=== PATIENT | male | born 1945 | race Caucasian/White ===

== ENCOUNTER 2018-06-02 09:33 | Emergency (ER) | payer MEDICARE ==
[2018-06-02] MEDS ORDERED: Acetaminophen 500 MG TAB ONE (10:47)
--- NOTE | 2018-06-02 11:12 | CT ---
CT Brain WO Con: 06/02/2018 10:54 AM CLINICAL HISTORY: Unsteady gait, fall. COMPARISON: None. FINDINGS: Hemorrhage: None. Ventricular system: Mild compensatory dilatation related to parenchymal volume loss. Cerebral parenchyma: Microvascular ischemic disease Midline shift: None. Mass: No mass effect. Calvarium: Normal. Visualized Paranasal sinuses: Clear. Decreased pneumatization of right mastoid air cells. IMPRESSION: No acute intracranial abnormalities.
[2018-06-02] MEDS ORDERED: Lidocaine 5% Patch TD SCH (11:15)
[2018-06-02 11:32] LABS: #Basophils 0.1 thou/uL (0.0-0.2); #Eosinphils 0.1 thou/uL (0.0-0.7); #Lymphocytes 2.5 thou/uL (1.20-3.40); #Monocytes 1.1 thou/uL (0.11-0.59); #Neutrophils 11.2 thou/uL (1.40-6.50); %Basophils 0.5 % (0.0-1.0); %Eosinophils 0.6 % (0.0-10.0); %Lymphocytes 16.5 % (21.0-51.0); %Monocytes 7.4 % (0.0-10.0); Hemoglobin 16.7 g/dL (14.0-18.0); Mean Corpuscular HGB CONC 34.3 g/dL (32.0-36.0); Mean Corpuscular Hemoglobin 33.7 pg (27.0-31.0); Mean Corpuscular Volume 98.3 fL (78.0-98.0); Mean Platelet Volume 6.8 fL (7.4-10.4); Platelet Count 293 thou/uL (130-400); RBC Distribution Width 11.9 % (11.5-14.5); Red Blood Cell (RBC) Count 4.94 mill/uL (4.70-6.10); White Blood Cell (WBC) Count 14.9 thou/uL (4.8-10.8)
--- NOTE | 2018-06-02 11:35 | RAD ---
PA CHEST RADIOGRAPH TWO VIEWS RIGHT RIBS: Date: 06-02-18 Provided Clinical History: Right sided chest pain status post injury. FINDINGS: No comparisons. Cardiac silhouette is within normal limits. Median sternotomy changes are seen. Left subclavian implanted port is noted. No focal consolidation, pleural fluid, or pneumothorax apparent. No evidence for a displaced right sided rib fracture. IMPRESSION: No evidence for an acute process. POS: [facility]
[2018-06-02 11:56] LABS: ALT (SGPT) 18 U/L (8-55); AST (SGOT) 17 U/L (5-34); Albumin 4.1 g/dL (3.4-4.8); Alkaline Phosphatase 94 U/L (40-150); Anion Gap 16 mmol/L (10-20); BUN (Urea Nitrogen) 14 mg/dL (8.4-25.7); Bilirubin, Total 0.6 mg/dL (0.2-1.2); CK (CPK) 33 U/L (30-200); Calc. Creatinine Clearance 0 mL/min (70-130); Calcium 10.1 mg/dL (7.8-10.44); Carbon Dioxide 22 mmol/L (23-31); Chloride 103 mmol/L (98-107); Estimated GFR-MDRD 89; Globulin 3.6 g/dL (2.4-3.5); Glucose 109 mg/dL (83-110); Potassium 4.1 mmol/L (3.5-5.1); Protein, Total 7.7 g/dL (5.8-8.1); Sodium 137 mmol/L (136-145)
[2018-06-02 13:01] LABS: Bilirubin Negative (Negative); Blood, Urine Small (Negative); Clarity CLOUDY (Clear); Glucose, Urine (Dipstick) Negative (Negative); Leukocyte Negative (Negative); Nitrite Negative (Negative); Protein, Urine (Dipstick) Negative (Neg-Trace); Specific Gravity, Urine 1.018 (1.002-1.036)
[2018-06-02 13:06] LABS: Bacteria/HPF None Seen HPF (None Seen); Hyaline Casts/LPF 0-3 HYALINE CAST LPF (0-3 Hyaline); Squamous Epithelial 0-3 HPF (0-3); WBC/HPF 0-3 HPF (0-3)
== END 2018-06-02 13:10 | disposition home or self-care (01) ==
LOC: ERS 09:33
DX: S20.211A Contusion of right front wall of thorax, initial encounter (principal); S30.811A Abrasion of abdominal wall, initial encounter; I10 Essential (primary) hypertension; B20 Human immunodeficiency virus [HIV] disease; I25.10 Atherosclerotic heart disease of native coronary artery without angina pectoris; W01.198A Fall on same level from slipping, tripping and stumbling with subsequent striking against other object, initial encounter
CPT/HCPCS: 36415; 70450; 80053; 81003; 81015; 82550; 84484; 85025; 93005

== ENCOUNTER 2018-06-17 08:55 | Outpatient (CLI) | payer MEDICARE ==
--- NOTE | 2018-06-17 09:51 | ULT ---
EXAM: Abdominal ultrasound complete: HISTORY: Abdominal pain COMPARISON: None FINDINGS: The liver appears unremarkable. There is some fairly dense shadowing from the region of the gallbladder fossa evidence for either a g allbladder which is packed with stones. Another consideration would be shallowing in a patient has had prior cholecystectomy. I favor this being stones. Additional imaging with CT would certainly be o f help in differentiating these possibilities. The common bile duct is Within normal limits. Visualized pancreas: Unremarkable. Visualized abdominal aorta: Unremarkable. Visualized IVC: Unremarkable. Visualized spleen: Unremarkable. Visualized kidneys: No evidence for hydronephrosis or solid or cystic mass. No mass, abscess, adenopathy, or abnormal fluid collection or other acute process. IMPRESSION: Dense shadowing from the gallbladder fossa which has more the appearance of a gallbladder which is pa cked with gallstones. If there is concern for prior cholecystectomy, follow-up CT scan is suggested.
== END 2018-06-17 08:56 | disposition home or self-care (01) ==
LOC: BICULT 08:55
PROVIDERS: ATTEND Internal Medicine Geriatric Medicine
DX: R10.84 Generalized abdominal pain (principal); K80.20 Calculus of gallbladder without cholecystitis without obstruction
CPT/HCPCS: 76700

== ENCOUNTER 2018-09-24 05:42 | Day surgery (SDC) | payer MEDICARE ==
[2018-09-18 16:01] VITALS: BMI 34.0
[2018-09-24] MEDS ORDERED: Ketorolac Tromethamine 30 MG/ML VIAL ONE (06:29)
[2018-09-24] MEDS ORDERED: ceFAZolin Sodium (SDC) 2 GM/100 ML BAG ONE (06:29)
[2018-09-24] MEDS ORDERED: Fentanyl 100 MCG/2 ML VIAL ONE ×2 (06:41→09:19)
[2018-09-24] MEDS ORDERED: Midazolam HCl 2 mg/2 ml Vial ONE (06:41)
[2018-09-24 06:47] LABS: #Basophils 0.1 thou/uL (0.0-0.2); #Eosinphils 0.2 thou/uL (0.0-0.7); #Lymphocytes 2.1 thou/uL (1.20-3.40); #Monocytes 0.7 thou/uL (0.11-0.59); #Neutrophils 4.2 thou/uL (1.40-6.50); %Basophils 0.9 % (0.0-1.0); %Eosinophils 3.1 % (0.0-10.0); %Lymphocytes 28.9 % (21.0-51.0); %Monocytes 9.6 % (0.0-10.0); %Neutrophils 57.5 % (42.0-75.0); Hemoglobin 14.6 g/dL (14.0-18.0); Mean Corpuscular HGB CONC 35.5 g/dL (32.0-36.0); Mean Corpuscular Hemoglobin 34.1 pg (27.0-31.0); Mean Corpuscular Volume 95.9 fL (78.0-98.0); Mean Platelet Volume 7.2 fL (7.4-10.4); Platelet Count 238 thou/uL (130-400); RBC Distribution Width 11.4 % (11.5-14.5); Red Blood Cell (RBC) Count 4.28 mill/uL (4.70-6.10); White Blood Cell (WBC) Count 7.3 thou/uL (4.8-10.8)
[2018-09-24] MEDS ORDERED: Bupivacaine/Epinephrine 0.25% 30 ML VIAL ONE (07:04)
[2018-09-24 07:05] LABS: Anion Gap 11 mmol/L (10-20); BUN (Urea Nitrogen) 20 mg/dL (8.4-25.7); Calc. Creatinine Clearance 91 mL/min (70-130); Calcium 9.7 mg/dL (7.8-10.44); Carbon Dioxide 26 mmol/L (23-31); Chloride 105 mmol/L (98-107); Estimated GFR-MDRD 71; Glucose 99 mg/dL (83-110); Potassium 4.4 mmol/L (3.5-5.1); Sodium 138 mmol/L (136-145)
--- NOTE | 2018-09-24 10:31 | RAD ---
XR Chest 1 View Portable History: MediPort removal Comparison: None. Findings: Heart size is enlarged. Small effusions. Mild pulmonary venous congestion and early edema. No pneumothorax. Appears to be a catheter projecting over the expected location left subclavian vein with tip extendin g over the mid SVC. The port component has been removed. Impression: Incomplete removal of catheter which projects over the subclavian vein with tip over the SVC with the port itself absent.
--- NOTE | 2018-09-25 10:08 | OP ---
DATE OF PROCEDURE: 09/24/2018 PREOPERATIVE DIAGNOSIS: Symptomatic cholelithiasis, unnecessary MediPort. POSTOPERATIVE DIAGNOSIS: Symptomatic cholelithiasis, unnecessary MediPort. OPERATION PERFORMED: Laparoscopic cholecystectomy (extremely difficult workup requiring about an hour and a half to complete) and MediPort removal (also difficult as the catheter was apparently imbedded in the central venous system and fragile). ANESTHESIA: General endotracheal. INDICATIONS: The patient is a 73-year-old white male. 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 This is located in the left upper chest. I recommended port removal while he was under anesthesia. He also has ultrasound proven cholelithiasis and laparoscopic cholecystectomy was recommended. DESCRIPTION OF OPERATION: Informed consent was obtained. Patient was taken to the operating room, where general endotracheal anesthesia obtained. Patient was placed in supine position. Abdomen was prepped with ChloraPrep and draped in sterile fashion. Local anesthetic was infiltrated using 0.25% Marcaine with epinephrine. A 5-mm infraumbilical incision was created through which a Veress needle was passed the peritoneal cavity, pneumoperitoneum was established, carbon dioxide up to pressure of 15 mmHg. A 5 mm trocar port was passed through the same incision. Laparoscopic camera was passed through this port. Under direct vision, three additional 5 mm right upper quadrant ports were placed. The patient had more mesenteric and omental fat than as typical and this made visualization of the gallbladder and the liver challenging. It was only with effort that I was able to move enough fatty tissue out of the way to be able to visualize the gallbladder. The visualized in the apex of the gallbladder was even more challenging. I was eventually able to see the gallbladder and when I attempted to grasp this, but it was impossible to do so as the gallbladder was completely full of stones. It was hard and there was no gallbladder wall laxity. There were some adhesions to the gallbladder that were taken down using careful electrocautery. I was able to grasp the gallbladder only with difficulty, and in doing so, the gallbladder wall tore almost immediately. From this opening, the stones began to drop into the abdominal cavity. Intermittently during the rest of the operation, I would stop and scoop up as many stones as I could before continuing. With difficulty, I was able to dissect at the apex of the gallbladder. The cystic artery was identified, dissected, divided between clips. The duct was identified and felt to be mildly dilated. I incised the duct proximally and there was no immediate reflux of bile. It appeared that there were stones within the cystic duct. With some degree of effort, I was able to milk two stones retrograde out of the distal cystic duct. Immediately after these were expressed, there was free flow of bile from the cystic duct. It was noted that the patient's liver function tests preoperatively were entirely normal. I divided the duct at the site of the ductotomy and closed the distal duct stump both with a clip and a PDS Endoloop. The gallbladder was then dissected out of the gallbladder fossa with some degree of difficulty using electrocautery. The specimen was placed in a specimen retrieval sac which was removed through the umbilical port site. I had to enlarge the skin incision and the fascial incision to get this out. The fascial defect was then closed with 0 Vicryl suture using a GraNee needle. Attention was then returned to the right upper quadrant. Unfortunately, there were a number of stones that had come out during the course of dissecting the gallbladder. I spent the next 0.5 hour chasing down all the stones that I could find. I continued to irrigate the subhepatic and parahepatic space and all stones that were encountered were removed. When all stones were removed and hemostasis was intact, all ports were removed under direct vision. Pneumoperitoneum was carefully evacuated. 0.25% Marcaine with epinephrine infiltrated at each port site. Skin edges were approximated with 4-0 Monocryl subcuticular suture. Dermabond was placed externally. Attention was then turned to his MediPort. This was prepped separately with ChloraPrep and draped in sterile fashion. Gloves were changed before proceeding. Additional local anesthetic was infiltrated into the port site using 0.25% Marcaine with epinephrine. The prior incision was reopened. Dissection was carried through skin and subcutaneous tissue down to the port. This was dissected circumferentially. Investing sutures were removed. I placed a [id number] suture of 3-0 Vicryl around the catheter entrance site and soft tissue and then attempted to remove the port and the catheter. As I gently pulled on the catheter, it appeared there might be some degree of resistance. Firm pressure was never placed on the catheter. With just minimal traction, it seemed to give way and pull out. When I examined, however, it appeared that the catheter had divided and that only a few inches of the catheter attached to the port were removed, which would leave a significantly longer segment still within his central venous system. The tract was ligated with the Vicryl suture. The wound was closed in layers with 3-0 and 4-0 Monocryl. Dermabond was placed externally. Patient tolerated the procedure well and had remained in stable condition throughout. He was taken to recovery room in stable condition. Chest x-ray was obtained in the recovery room showing the residual catheter in a typical location of the superior vena cava and the innominate vein. I suspect that the catheter was imbedded in the venous system at this location and had fractured with almost no effort with attempted removal of the catheter and the port. At this point, there did not seem to be anything else needed to be done. I suspect that will be stable and remain in location. Job ID: [id number]
== END 2018-09-24 12:45 | disposition home or self-care (01) ==
LOC: SDC 05:42
PROVIDERS: ATTEND Specialist
PROC: 0FT44ZZ Resection of Gallbladder, Percutaneous Endoscopic Approach (ICD-10-PCS; principal; 2018-09-24)
PROC: 0JPT3WZ Removal of Totally Implantable Vascular Access Device from Trunk Subcutaneous Tissue and Fascia, Percutaneous Approach (ICD-10-PCS; 2018-09-24)
DX: K80.12 Calculus of gallbladder with acute and chronic cholecystitis without obstruction (principal); K82.8 Other specified diseases of gallbladder; I25.10 Atherosclerotic heart disease of native coronary artery without angina pectoris; I11.9 Hypertensive heart disease without heart failure; Z85.72 Personal history of non-Hodgkin lymphomas; Z21 Asymptomatic human immunodeficiency virus [HIV] infection status; Z79.82 Long term (current) use of aspirin; Z79.899 Other long term (current) drug therapy; Z88.0 Allergy status to penicillin; Z88.5 Allergy status to narcotic agent; Z91.013 Allergy to seafood
CPT/HCPCS: 71045; 80048; 85025; 88304; J0131; J0690; J1885; J2250; J3010

== ENCOUNTER 2018-10-08 13:46 | Outpatient (CLI) | payer MEDICARE ==
--- NOTE | 2018-10-08 18:52 | RAD ---
TWO VIEW CHEST: 10/08/18 INDICATION: Complication from femoral arterial graft. Reference made to 09/24/18. FINDINGS: There is evidence of prior sternotomy. Cardiac silhouette is stable in size. Interval improvement of prior vascular congestion with slight prominence of central pulmonary vasculature remaining. Mild pat peyton left basilar density is present. No pneumothorax. Prior remnant catheter overlying the mediastinum is grossly stable. IMPRESSION: Mild patchy left basilar density which may be on the basis of pneumonitis or atelectasis. This is imp roved from prior exam, however. Interval improved vascular congestion. Previously noted catheter remnant of the left subclavian vein/SVC region is similar appearing. POS: [facility]
== END 2018-10-08 13:47 | disposition home or self-care (01) ==
LOC: RAD 13:46
PROVIDERS: ATTEND Specialist
DX: T82.392A Other mechanical complication of femoral arterial graft (bypass), initial encounter (principal); J98.4 Other disorders of lung; R09.89 Other specified symptoms and signs involving the circulatory and respiratory systems; Z95.828 Presence of other vascular implants and grafts
CPT/HCPCS: 71046

== ENCOUNTER 2020-11-01 10:25 | Outpatient (CLI) | payer MEDICARE ==
[2020-11-01 13:22] LABS: ALT (SGPT) 17 U/L (8-55); AST (SGOT) 17 U/L (5-34); Albumin 3.7 g/dL (3.4-4.8); Alkaline Phosphatase 114 U/L (40-110); Anion Gap 14 mmol/L (10-20); BUN (Urea Nitrogen) 16 mg/dL (8.4-25.7); Bilirubin, Total 0.7 mg/dL (0.2-1.2); Calc. Creatinine Clearance 0 mL/min (70-130); Calcium 9.5 mg/dL (7.8-10.44); Carbon Dioxide 23 mmol/L (23-31); Chloride 106 mmol/L (98-107); Globulin 2.8 g/dL (2.4-3.5); Glucose 151 mg/dL (83-110); Potassium 4.1 mmol/L (3.5-5.1); Protein, Total 6.5 g/dL (5.8-8.1); Sodium 139 mmol/L (136-145)
[2020-11-01 13:28] LABS: #Eosinphils 0.1 10x3/uL (0.0-0.5); #Monocytes 0.6 10x3/uL (0.0-1.1); %Basophils 0.5 % (0.0-2.0); %Lymphocytes 26.9 % (18.0-47.0); %Monocytes 7.7 % (0.0-10.0); %Neutrophils 63.4 % (40.0-75.0); Mean Corpuscular Hemoglobin 32.9 pg (27.0-33.0); Mean Corpuscular Volume 93.9 fl (81.2-95.1); Mean Platelet Volume 10.1 fl (7.4-10.4); Platelet Count 226 10x3/uL (150-450); Red Blood Cell (RBC) Count 4.26 10x6/uL (4.32-5.72); White Blood Cell (WBC) Count 7.8 10x3/uL (3.5-10.5)
[2020-11-02 11:54] LABS: SARS-CoV-2 PCR by NAA Not Detected (NotDetected)
== END 2020-11-01 10:26 | disposition home or self-care (01) ==
LOC: LABBT 10:25
PROVIDERS: ATTEND Internal Medicine Cardiovascular Disease
DX: Z01.818 Encounter for other preprocedural examination (principal); R94.39 Abnormal result of other cardiovascular function study; Z20.822 Contact with and (suspected) exposure to COVID-19; Z95.1 Presence of aortocoronary bypass graft
CPT/HCPCS: 80053; 85025; 93005; U0003; U0005; 93010

== ENCOUNTER 2020-11-06 06:12 | Inpatient (IN) | payer MEDICARE ==
[2020-11-06] MEDS ORDERED: Midazolam HCl 2 mg/2 ml Vial ONE (06:34)
[2020-11-06] MEDS ORDERED: Heparin 10,000 UNITS/ 10 ML VIAL ONE (06:35)
[2020-11-06] MEDS ORDERED: Lidocaine 1% (PF) 30 ML VIAL ONE (06:35)
[2020-11-06] MEDS ORDERED: Fentanyl 100 MCG/2 ML VIAL ONE (06:35)
[2020-11-06] MEDS ORDERED: Protamine Sulfate 50 MG/5 ML VIAL ONE (06:35)
[2020-11-06 07:56] LABS: Cardiac Risk 3.8 (Less than 4.5)
[2020-11-06] MEDS ORDERED: Nitroglycerin 100MG/250ML BOT 250 ML ONE (08:07)
[2020-11-06] MEDS ORDERED: Bivalirudin 250 MG VIAL ONE (08:10)
[2020-11-06] MEDS ORDERED: Clopidogrel Bisulfate 300 MG TAB ONE (08:21)
[2020-11-06] MEDS ORDERED: Amiodarone 150 MG/3 ML VIAL ONE (08:53)
[2020-11-06] MEDS ORDERED: Sodium Chloride 0.9% 1,000 ML IV SCH (09:15)
[2020-11-06] MEDS ORDERED: Nitroglycerin 0.4 MG TAB (25 Tab Bottle) SL PRN (09:15)
[2020-11-06] MEDS ORDERED: Morphine 4 MG/ML VIAL SLOW IVP PRN (09:15)
[2020-11-06] MEDS ORDERED: Morphine 2 MG/ML VIAL SLOW IVP PRN (09:15)
[2020-11-06] MEDS ORDERED: Morphine 2 MG/ML VIAL ONE (12:44)
[2020-11-06] MEDS ORDERED: Iopamidol 370 76% 100 ML VIAL ONE (15:17)
[2020-11-06] MEDS ORDERED: Iopamidol 370 76% 50 ML VIAL FS ONE (15:17)
[2020-11-06 20:07] VITALS: BMI 29.5
[2020-11-06] MEDS ORDERED: Acetaminophen 325 MG TAB PO PRN (20:52)
[2020-11-06] MEDS ORDERED: Mag-Al 1200 mg/1200 mg/30 ML UDCUP PO SCH (21:00)
[2020-11-07 05:35] LABS: #Eosinphils 0.1 thou/uL (0.0-0.7); #Monocytes 1.1 thou/uL (0.11-0.59); #Neutrophils 7.9 thou/uL (1.40-6.50); %Basophils 0.2 % (0.0-1.0); %Eosinophils 0.6 % (0.0-10.0); %Lymphocytes 18.2 % (21.0-51.0); %Monocytes 9.8 % (0.0-10.0); %Neutrophils 71.2 % (42.0-75.0); Hemoglobin 14.3 g/dL (14.0-18.0); Mean Corpuscular HGB CONC 34.4 g/dL (32.0-36.0); Mean Corpuscular Volume 95.9 fL (78.0-98.0); Platelet Count 224 thou/uL (130-400); RBC Distribution Width 12.2 % (11.5-14.5); Red Blood Cell (RBC) Count 4.35 mill/uL (4.70-6.10); White Blood Cell (WBC) Count 11.1 thou/uL (4.8-10.8)
[2020-11-07 06:04] LABS: ALT (SGPT) 21 U/L (8-55); AST (SGOT) 22 U/L (5-34); Albumin 3.3 g/dL (3.4-4.8); Alkaline Phosphatase 131 U/L (40-110); Anion Gap 14 mmol/L (10-20); BUN (Urea Nitrogen) 12 mg/dL (8.4-25.7); Bilirubin, Total 1.4 mg/dL (0.2-1.2); Calc. Creatinine Clearance 116 mL/min (70-130); Calcium 8.8 mg/dL (7.8-10.44); Carbon Dioxide 20 mmol/L (23-31); Chloride 105 mmol/L (98-107); Globulin 2.9 g/dL (2.4-3.5); Glucose 109 mg/dL (83-110); Potassium 3.6 mmol/L (3.5-5.1); Protein, Total 6.2 g/dL (5.8-8.1); Sodium 135 mmol/L (136-145)
[2020-11-07] MEDS ORDERED: Aspirin 81 mg Enteric Coated Tablet PO SCH (09:15)
[2020-11-07] MEDS: Furosemide 20 MG TAB PO SCH (09:41)
[2020-11-07] MEDS: CeleCOXIB 100 MG CAP PO SCH (09:42)
[2020-11-07] MEDS: Clopidogrel Bisulfate 75 MG TAB PO SCH (09:42)
[2020-11-07] MEDS: Amiodarone 200 MG TAB PO SCH ×2 (15:00→20:50)
[2020-11-07] MEDS: Atorvastatin Calcium 40 MG TAB PO SCH (20:50)
[2020-11-08] MEDS ORDERED: PROPOFOL 20 ML ONE (08:34)
[2020-11-08] MEDS ORDERED: PROPOFOL 200 MG/20 ML VIAL ONE (08:56)
[2020-11-08] MEDS ORDERED: GENVOYA FS SCH (09:00)
[2020-11-08] MEDS ORDERED: Apixaban 5 MG TAB PO SCH (09:45)
[2020-11-08] MEDS: Clopidogrel Bisulfate 75 MG TAB PO SCH ×2 (10:20→11:00)
[2020-11-08] MEDS: Amiodarone 200 MG TAB PO SCH ×3 (10:20→21:55)
[2020-11-08] MEDS: CeleCOXIB 100 MG CAP PO SCH (10:59)
[2020-11-08] MEDS: Aspirin 81 mg Enteric Coated Tablet PO SCH (11:00)
[2020-11-08] MEDS: Furosemide 20 MG TAB PO SCH (11:01)
[2020-11-08] MEDS: Apixaban 5 MG TAB PO SCH (21:55)
[2020-11-08] MEDS: Atorvastatin Calcium 40 MG TAB PO SCH (21:55)
[2020-11-09 08:45] VITALS: TEMP 97.9
[2020-11-09] MEDS: Clopidogrel Bisulfate 75 MG TAB PO SCH (08:50)
[2020-11-09] MEDS: Amiodarone 200 MG TAB PO SCH (08:50)
[2020-11-09] MEDS: CeleCOXIB 100 MG CAP PO SCH (08:51)
[2020-11-09] MEDS: Apixaban 5 MG TAB PO SCH (08:51)
[2020-11-09] MEDS: Furosemide 20 MG TAB PO SCH (08:51)
[2020-11-09] MEDS: Aspirin 81 mg Enteric Coated Tablet PO SCH (08:52)
[2020-11-09 14:10] VITALS: BP 128/64
[2020-11-09] MEDS ORDERED: Amiodarone 200 MG TAB PO SCH (21:00)
[2020-11-10] MEDS ORDERED: Ezetimibe 10 MG TAB PO SCH (09:00)
== END 2020-11-09 15:44 | disposition home or self-care (01) | DRG 249 ==
LOC: CCL 06:12 → 2NO 15:05 → OBSVTOIN 11-09 10:22
PROVIDERS: ADMIT Internal Medicine Cardiovascular Disease; ATTEND Internal Medicine Cardiovascular Disease
PROC: B24BZZ4 Ultrasonography of Heart with Aorta, Transesophageal (ICD-10-PCS; principal; 2020-11-09)
PROC: 02703EZ Dilation of Coronary Artery, One Artery with Two Intraluminal Devices, Percutaneous Approach (ICD-10-PCS; 2020-11-09)
PROC: 4A023N7 Measurement of Cardiac Sampling and Pressure, Left Heart, Percutaneous Approach (ICD-10-PCS; 2020-11-09)
PROC: B2111ZZ Fluoroscopy of Multiple Coronary Arteries using Low Osmolar Contrast (ICD-10-PCS; 2020-11-09)
PROC: B2181ZZ Fluoroscopy of Left Internal Mammary Bypass Graft using Low Osmolar Contrast (ICD-10-PCS; 2020-11-09)
PROC: B2121ZZ Fluoroscopy of Single Coronary Artery Bypass Graft using Low Osmolar Contrast (ICD-10-PCS; 2020-11-09)
PROC: B2151ZZ Fluoroscopy of Left Heart using Low Osmolar Contrast (ICD-10-PCS; 2020-11-09)
PROC: 4A033BC Measurement of Arterial Pressure, Coronary, Percutaneous Approach (ICD-10-PCS; 2020-11-09)
DX: I25.10 Atherosclerotic heart disease of native coronary artery without angina pectoris (principal); C85.90 Non-Hodgkin lymphoma, unspecified, unspecified site; I25.82 Chronic total occlusion of coronary artery; R29.6 Repeated falls; I48.0 Paroxysmal atrial fibrillation; I25.5 Ischemic cardiomyopathy; Z96.659 Presence of unspecified artificial knee joint; I34.0 Nonrheumatic mitral (valve) insufficiency; Z21 Asymptomatic human immunodeficiency virus [HIV] infection status; E78.00 Pure hypercholesterolemia, unspecified; I10 Essential (primary) hypertension; Z80.9 Family history of malignant neoplasm, unspecified; Z88.5 Allergy status to narcotic agent; Z88.0 Allergy status to penicillin; Z79.82 Long term (current) use of aspirin; Z79.899 Other long term (current) drug therapy; Z95.1 Presence of aortocoronary bypass graft; Z90.49 Acquired absence of other specified parts of digestive tract; Z82.49 Family history of ischemic heart disease and other diseases of the circulatory system; Z83.3 Family history of diabetes mellitus
CPT/HCPCS: 36415; 76942; 80053; 80061; 85025; 85347; 92928; 93005; 93010; 93312; 93459; 93798; 99152; 99153; C1876; G0378; J0282; J0583; J1644; J2001; J2250; J2270; J2704; J2720; J3010; Q9967

== ENCOUNTER 2021-06-25 13:42 | Outpatient (CLI) | payer MEDICARE | END 2021-06-25 13:43 | disposition home or self-care (01) | LOC: BICRAD 13:42 | PROVIDERS: ATTEND Internal Medicine Cardiovascular Disease | DX: I48.0 Paroxysmal atrial fibrillation (principal) | CPT/HCPCS: 36415; 71046; 80053; 80061; 84443 ==

== ENCOUNTER 2024-11-18 10:54 | Inpatient (IN) | payer MEDICARE ==
[2024-11-18] MEDS ORDERED: Nitroglycerin 2% Ointment 1 INCH/1 GM Packet ONE (11:21)
[2024-11-18] MEDS ORDERED: Furosemide 40 MG (4 mL) VIAL ONE (11:21)
[2024-11-18] MEDS ORDERED: Ondansetron PF 4 MG/2 ML Vial ONE (11:22)
[2024-11-18 11:44] LABS: #Basophils 0.03 10x3/uL (0.0-0.2); #Eosinophils Less than 0.03 10x3/uL (0.0-0.7); #Monocytes 0.93 10x3/uL (0.11-0.59); #Neutrophils 12.18 10x3/uL (1.40-6.50); %Basophils 0.2 % (0.0-1.0); %Eosinophils 0.1 % (0.0-10.0); %Lymphocytes 12.2 % (21.0-51.0); %Monocytes 6.2 % (0.0-10.0); %Neutrophils 80.6 % (42.0-75.0); Hematocrit 43.4 % (42.0-52.0); Hemoglobin 13.8 g/dL (14.0-18.0); Mean Corpuscular Hemoglobin 29.4 pg (27.0-31.0); Mean Corpuscular Volume 92.5 fL (78.0-98.0); Platelet Count 125 10x3/uL (130-400); Red Blood Cell (RBC) Count 4.69 mill/uL (4.70-6.10); White Blood Cell (WBC) Count 15.10 10x3/uL (4.8-10.8)
[2024-11-18 12:00] LABS: ALT (SGPT) 20 U/L (Less than 45); AST (SGOT) 55 U/L (11-34); Albumin 3.1 g/dL (3.1-4.5); Alkaline Phosphatase 106 U/L (40-110); Anion Gap 20 mmol/L (10-20); BUN (Urea Nitrogen) 17 mg/dL (8.4-25.7); Bilirubin, Total 1.3 mg/dL (0.3-1.2); CK (CPK) 71 U/L (30-200); Calc. Creatinine Clearance 0 mL/min (70-130); Calcium 8.4 mg/dL (7.8-10.44); Carbon Dioxide 17 mmol/L (23-31); Chloride 107 mmol/L (98-107); Globulin 4.6 g/dL (2.4-3.5); Glucose 120 mg/dL (83-110); Lipase 21 U/L (8-78); Potassium 5.0 mmol/L (3.5-5.1); Sodium 139 mmol/L (136-145)
[2024-11-18 12:24] LABS: Actual Bicarbonate (HCO3a) 18.7 mEq/L (22-28); Analyzer IN Cardio ER; Base Excess (BEa) -6.7 mEq/L (-2.0 to +3.0); CO2 Tension 37.4 mmHg (35.0-45.0); Calcium, Ionized (arterial) 1.12 mmol/L (1.12-1.30); Hematocrit-ABG 43 % (42.0-52.0); Hemoglobin (Hb) 14.5 g/dL (14.0-18.0); Potassium - ABG Lab 3.99 mmol/L (3.70-5.30); pH, Arterial 7.317 (7.35-7.45)
[2024-11-18] MEDS ORDERED: Guaifenesin DM 100-10/5 ML UDCUP PO PRN (14:29)
[2024-11-18 16:06] LABS: Bacteria/HPF None Seen HPF (None Seen); CAUTI Indications for Culture Dysuria,urgency,freq; Glucose, Urine (Dipstick) Normal (Negative); Leukocyte Negative Leu/uL (Negative); Protein, Urine (Dipstick) 10 mg/dL (Neg-Trace); RBC/HPF 0-3 HPF (0-3); Specific Gravity, Urine 1.015 (1.002-1.036); WBC/HPF 0-3 HPF (0-3)
[2024-11-18 16:12] LABS: Cocaine Metabolite Screen Negative (Negative); THC/Cannabinoid Screen Negative (Negative); Tricyclic Screen Negative (Negative); Urine Culture Reflex No No
[2024-11-18] MEDS ORDERED: Cefepime 2 GM VIAL ONE (17:23)
[2024-11-18] MEDS: Vancomycin (BATCH) 2.5 GM in Premix 1 BAG IVPB SCH (19:00)
[2024-11-19] MEDS: Enoxaparin 100 MG (1 mL) SYRINGE SC SCH ×2 (00:28→08:37)
[2024-11-19 04:15] LABS: #Basophils 0.03 10x3/uL (0.0-0.2); #Eosinophils 0.06 10x3/uL (0.0-0.7); #Monocytes 0.59 10x3/uL (0.11-0.59); #Neutrophils 10.14 10x3/uL (1.40-6.50); %Basophils 0.3 % (0.0-1.0); %Eosinophils 0.5 % (0.0-10.0); %Lymphocytes 9.0 % (21.0-51.0); %Monocytes 4.9 % (0.0-10.0); %Neutrophils 84.9 % (42.0-75.0); Hematocrit 37.7 % (42.0-52.0); Hemoglobin 11.8 g/dL (14.0-18.0); Mean Corpuscular Hemoglobin 29.4 pg (27.0-31.0); Mean Corpuscular Volume 94.0 fL (78.0-98.0); Platelet Count 126 10x3/uL (130-400); Red Blood Cell (RBC) Count 4.01 mill/uL (4.70-6.10); White Blood Cell (WBC) Count 11.95 10x3/uL (4.8-10.8)
[2024-11-19] MEDS: Furosemide 40 MG (4 mL) VIAL SLOW IVP SCH (05:03)
[2024-11-19 07:26] LABS: INR-International Normal Ratio 1.4; Prothrombin Time 17.1 sec (12.0-14.7)
[2024-11-19] MEDS: FLU (Fluad Triv) 25-26 (65UP)PF 45 MCG/0.5 ML Syringe IM ONE (08:37)
[2024-11-19 08:54] LABS: Vancomycin, Random 21.5 ug/mL (See Comment)
[2024-11-19 08:58] LABS: ALT (SGPT) 15 U/L (Less than 45); AST (SGOT) 51 U/L (11-34); Albumin 2.5 g/dL (3.1-4.5); Alkaline Phosphatase 78 U/L (40-110); Anion Gap 14 mmol/L (10-20); BUN (Urea Nitrogen) 22 mg/dL (8.4-25.7); Bilirubin, Total 1.1 mg/dL (0.3-1.2); Calc. Creatinine Clearance 61 mL/min (70-130); Calcium 8.7 mg/dL (7.8-10.44); Carbon Dioxide 18 mmol/L (23-31); Chloride 113 mmol/L (98-107); Globulin 3.8 g/dL (2.4-3.5); Glucose 101 mg/dL (83-110); Iron 26 ug/dL (65-175); Iron Binding Capacity, Total 213 mcg/dL (261-462); Magnesium 1.9 mg/dL (1.6-2.6); Potassium 4.1 mmol/L (3.5-5.1); Sodium 141 mmol/L (136-145)
[2024-11-19] MEDS ORDERED: Enoxaparin 40 MG (0.4 mL) SYRINGE SC SCH (09:00)
[2024-11-19 10:16] LABS: Ferritin 82.21 ng/mL (22-322); Thyroid Stimulating Hormone 12.124 uIU/mL (0.35-4.94)
[2024-11-19 12:46] LABS: O2 Tension (PaO2), arterial 57.9 mmHg (> 60.0)
[2024-11-19] MEDS: Vancomycin HCl 1.25 GM in Sodium Chloride 0.9% 250 ML 250 ML IVPB SCH (13:07)
[2024-11-19] MEDS: Amiodarone 200 MG TAB PO SCH (15:11)
[2024-11-19] MEDS: Acetaminophen 325 MG TAB PO PRN (15:11)
[2024-11-19] MEDS: Ezetimibe 10 MG TAB PO SCH (15:12)
[2024-11-20] MEDS: Ondansetron PF 4 MG/2 ML Vial IVP PRN (00:25)
[2024-11-20] MEDS: Calcium Carbonate 500 MG ChewTAB PO PRN (01:03)
[2024-11-20 03:38] LABS: #Basophils 0.03 10x3/uL (0.0-0.2); #Eosinophils Less than 0.03 10x3/uL (0.0-0.7); #Monocytes 0.61 10x3/uL (0.11-0.59); #Neutrophils 11.36 10x3/uL (1.40-6.50); %Basophils 0.2 % (0.0-1.0); %Eosinophils 0.1 % (0.0-10.0); %Lymphocytes 7.2 % (21.0-51.0); %Monocytes 4.7 % (0.0-10.0); %Neutrophils 87.5 % (42.0-75.0); Hematocrit 39.5 % (42.0-52.0); Hemoglobin 12.5 g/dL (14.0-18.0); Mean Corpuscular Hemoglobin 29.4 pg (27.0-31.0); Mean Corpuscular Volume 92.9 fL (78.0-98.0); Platelet Count 108 10x3/uL (130-400); Red Blood Cell (RBC) Count 4.25 mill/uL (4.70-6.10); White Blood Cell (WBC) Count 12.98 10x3/uL (4.8-10.8)
[2024-11-20 03:47] LABS: INR-International Normal Ratio 1.3; Prothrombin Time 16.7 sec (12.0-14.7)
[2024-11-20 06:14] LABS: Chloride 109 mmol/L (98-107); Potassium 3.8 mmol/L (3.5-5.1); Sodium 140 mmol/L (136-145)
[2024-11-20 06:15] LABS: Albumin 2.6 g/dL (3.1-4.5); Calcium 8.4 mg/dL (7.8-10.44); Glucose 107 mg/dL (83-110)
[2024-11-20 06:16] LABS: Globulin 4.0 g/dL (2.4-3.5)
[2024-11-20 06:17] LABS: Anion Gap 19 mmol/L (10-20); Carbon Dioxide 16 mmol/L (23-31)
[2024-11-20 06:18] LABS: Alkaline Phosphatase 71 U/L (40-110); Bilirubin, Total 0.9 mg/dL (0.3-1.2)
[2024-11-20 06:19] LABS: BUN (Urea Nitrogen) 23 mg/dL (8.4-25.7); Calc. Creatinine Clearance 64 mL/min (70-130)
[2024-11-20 06:21] LABS: ALT (SGPT) 19 U/L (Less than 45); AST (SGOT) 53 U/L (11-34)
[2024-11-20] MEDS: Aspirin 81 mg Enteric Coated Tablet PO SCH (09:05)
[2024-11-20] MEDS ORDERED: [UNRECOGNIZED DRUG - OTHER] PO SCH (21:00)
[2024-11-21 05:23] LABS: #Basophils 0.05 10x3/uL (0.0-0.2); #Eosinophils 0.03 10x3/uL (0.0-0.7); #Monocytes 1.05 10x3/uL (0.11-0.59); #Neutrophils 13.76 10x3/uL (1.40-6.50); %Basophils 0.3 % (0.0-1.0); %Eosinophils 0.2 % (0.0-10.0); %Lymphocytes 11.4 % (21.0-51.0); %Monocytes 6.2 % (0.0-10.0); %Neutrophils 81.3 % (42.0-75.0); Hematocrit 41.4 % (42.0-52.0); Hemoglobin 12.8 g/dL (14.0-18.0); Mean Corpuscular Hemoglobin 29.6 pg (27.0-31.0); Mean Corpuscular Volume 95.8 fL (78.0-98.0); Platelet Count 206 10x3/uL (130-400); Red Blood Cell (RBC) Count 4.32 mill/uL (4.70-6.10); White Blood Cell (WBC) Count 16.91 10x3/uL (4.8-10.8)
[2024-11-21 06:38] LABS: INR-International Normal Ratio 1.2; Prothrombin Time 15.3 sec (12.0-14.7)
[2024-11-21] MEDS ORDERED: EPINEPHrine 1 MG/10 ML Abboject SYRINGE ONE (07:16)
[2024-11-21] MEDS ORDERED: Sodium Bicarb 50 MEQ/50 ML Abboject 8.4% SYRINGE ONE (07:16)
[2024-11-21] MEDS ORDERED: Ventilator Sedation Protocol 1 EACH FS SCH (07:18)
[2024-11-21] MEDS ORDERED: Fentanyl BOLUS 100 ML IVPB PRN (07:30)
[2024-11-21] MEDS ORDERED: DISCONTINUE PREVIOUS NARCOTIC PAIN MEDICATIONS AND BENZODIAZEPINES FS SCH (07:30)
[2024-11-21] MEDS ORDERED: Propofol BOLUS 1,000 MG/100 ML VIAL IV PRN (07:30)
[2024-11-21] MEDS: Norepinephrine 8 MG/0.9% NS 250 ML ONE (07:50)
[2024-11-21] MEDS: Sodium Bicarb 50 MEQ/50 ML Abboject 8.4% SYRINGE IVP SCH (07:52)
[2024-11-21 07:59] LABS: ALT (SGPT) 23 U/L (Less than 45); AST (SGOT) 64 U/L (11-34); Albumin 2.9 g/dL (3.1-4.5); Alkaline Phosphatase 80 U/L (40-110); Anion Gap 20 mmol/L (10-20); BUN (Urea Nitrogen) 32 mg/dL (8.4-25.7); Bilirubin, Total 1.0 mg/dL (0.3-1.2); Calc. Creatinine Clearance 55 mL/min (70-130); Calcium 8.9 mg/dL (7.8-10.44); Carbon Dioxide 17 mmol/L (23-31); Chloride 107 mmol/L (98-107); Globulin 4.6 g/dL (2.4-3.5); Glucose 121 mg/dL (83-110); Magnesium 2.2 mg/dL (1.6-2.6); Potassium 3.7 mmol/L (3.5-5.1); Sodium 140 mmol/L (136-145)
[2024-11-21] MEDS ORDERED: NOREPINEPHRINE 8 MG/250 ML-D5W 250 ML IVPB SCH (08:00)
[2024-11-21 08:08] LABS: INR-International Normal Ratio 1.3; Prothrombin Time 16.0 sec (12.0-14.7)
[2024-11-21] MEDS: Vasopressin In 0.9 % NaCl 100 ML ONE (08:09)
[2024-11-21 09:09] LABS: Actual Bicarbonate (HCO3a) 20.1 mEq/L (22-28); Base Excess (BEa) -4.4 mEq/L (-2.0 to +3.0); CO2 Tension 34.7 mmHg (35.0-45.0); Hematocrit-ABG 35 % (42.0-52.0); Hemoglobin (Hb) 12.0 g/dL (14.0-18.0); O2 Tension (PaO2), arterial 248.0 mmHg (> 60.0); pH, Arterial 7.380 (7.35-7.45)
[2024-11-21 09:10] LABS: ALV-art Gradient 421.625 mmHg (0-20); Analyzer IN Cardio OR; Calcium, Ionized (arterial) 1.05 mmol/L (1.12-1.30); Potassium - ABG Lab 3.38 mmol/L (3.70-5.30); Puncture Site Arterial Line
[2024-11-21] MEDS: Ezetimibe 10 MG TAB PO SCH (09:52)
[2024-11-21] MEDS: Albumin 5% 12.5 GM (250 mL) BOT IVPB SCH (12:36)
[2024-11-21] MEDS: Norepinephrine 8 MG/0.9% NS 250 ML IVPB SCH (17:15)
[2024-11-21] MEDS: Pantoprazole 40 MG VIAL IVP SCH (17:15)
[2024-11-21] MEDS ORDERED: Communication Order-Pharmacy FS SCH (20:45)
[2024-11-22 04:29] LABS: INR-International Normal Ratio 1.4; Prothrombin Time 17.6 sec (12.0-14.7)
[2024-11-22 04:39] LABS: Anion Gap 16 mmol/L (10-20); BUN (Urea Nitrogen) 42 mg/dL (8.4-25.7); Calc. Creatinine Clearance 23 mL/min (70-130); Calcium 7.9 mg/dL (7.8-10.44); Carbon Dioxide 23 mmol/L (23-31); Chloride 107 mmol/L (98-107); Glucose 144 mg/dL (83-110); Potassium 2.7 mmol/L (3.5-5.1); Sodium 143 mmol/L (136-145)
[2024-11-22 04:46] LABS: #Basophils Less than 0.03 10x3/uL (0.0-0.2); #Eosinophils 0.08 10x3/uL (0.0-0.7); #Monocytes 0.71 10x3/uL (0.11-0.59); #Neutrophils 10.47 10x3/uL (1.40-6.50); %Basophils 0.1 % (0.0-1.0); %Eosinophils 0.6 % (0.0-10.0); %Lymphocytes 17.6 % (21.0-51.0); %Monocytes 5.2 % (0.0-10.0); %Neutrophils 75.9 % (42.0-75.0); Hematocrit 29.3 % (42.0-52.0); Hemoglobin 9.6 g/dL (14.0-18.0); Mean Corpuscular Hemoglobin 29.6 pg (27.0-31.0); Mean Corpuscular Volume 90.4 fL (78.0-98.0); Platelet Count 168 10x3/uL (130-400); Red Blood Cell (RBC) Count 3.24 mill/uL (4.70-6.10); White Blood Cell (WBC) Count 13.78 10x3/uL (4.8-10.8)
[2024-11-22 08:08] LABS: Actual Bicarbonate (HCO3a) 23.2 mEq/L (22-28); Base Excess (BEa) 3.6 mEq/L (-2.0 to +3.0); Calcium, Ionized (arterial) 1.03 mmol/L (1.12-1.30); Hematocrit-ABG 29 % (42.0-52.0); Hemoglobin (Hb) 9.7 g/dL (14.0-18.0); O2 Tension (PaO2), arterial 162.0 mmHg (> 60.0); Potassium - ABG Lab 3.02 mmol/L (3.70-5.30)
[2024-11-22 08:09] LABS: CO2 Tension 20.9 mmHg (35.0-45.0); Puncture Site Arterial Line; pH, Arterial 7.664 (7.35-7.45)
[2024-11-22 08:10] LABS: ALV-art Gradient 168.375 mmHg (0-20)
[2024-11-22] MEDS: Aspirin Chewable 81 MG TAB PER TUBE SCH (09:04)
[2024-11-22] MEDS: Pantoprazole 40 MG VIAL IVP SCH (09:04)
[2024-11-22] MEDS: VANCOMYCIN 2 GRAM/400 ML BAG 2 GM in Premix 1 BAG IVPB SCH (15:26)
[2024-11-22 15:46] LABS: Potassium 3.2 mmol/L (3.5-5.1)
[2024-11-22] MEDS: Vasopressin In 0.9 % NaCl 40 UNIT in Premix 1 BAG IV SCH (15:53)
[2024-11-22 17:57] LABS: HIV (1/2) Antibody/Antigen Reflxed Confirmation (NonReactive); HIV 1/2 INDEX 974.35 S/CO (<1.00)
[2024-11-22 18:05] LABS: Hematocrit 27.9 % (42.0-52.0); Hemoglobin 8.6 g/dL (14.0-18.0)
[2024-11-22] MEDS: Potassium Chloride 40 MEQ in Premix 1 BAG IVPB SCH (18:16)
[2024-11-23 04:14] LABS: Hematocrit 27.9 % (42.0-52.0); Hemoglobin 8.8 g/dL (14.0-18.0); Mean Corpuscular Hemoglobin 29.3 pg (27.0-31.0); Mean Corpuscular Volume 93.0 fL (78.0-98.0); Platelet Count 125 10x3/uL (130-400); Red Blood Cell (RBC) Count 3.00 mill/uL (4.70-6.10); White Blood Cell (WBC) Count 10.97 10x3/uL (4.8-10.8)
[2024-11-23 04:26] LABS: INR-International Normal Ratio 1.2; Prothrombin Time 15.2 sec (12.0-14.7)
[2024-11-23 04:29] LABS: Vancomycin, Random 32.5 ug/mL (See Comment)
[2024-11-23 04:33] LABS: Anion Gap 16 mmol/L (10-20); BUN (Urea Nitrogen) 46 mg/dL (8.4-25.7); Calc. Creatinine Clearance 49 mL/min (70-130); Calcium 7.9 mg/dL (7.8-10.44); Carbon Dioxide 23 mmol/L (23-31); Chloride 109 mmol/L (98-107); Glucose 127 mg/dL (83-110); Magnesium 2.1 mg/dL (1.6-2.6); Potassium 3.5 mmol/L (3.5-5.1); Sodium 144 mmol/L (136-145)
[2024-11-23] MEDS: Potassium Chloride 20 MEQ in Premix 1 BAG IVPB SCH (08:49)
[2024-11-23] MEDS ORDERED: Vancomycin 1 GM in Premix 1 BAG IVPB SCH (14:00)
[2024-11-24 05:34] LABS: Hematocrit 28.6 % (42.0-52.0); Hemoglobin 8.8 g/dL (14.0-18.0); Mean Corpuscular Hemoglobin 29.0 pg (27.0-31.0); Mean Corpuscular Volume 94.4 fL (78.0-98.0); Platelet Count 204 10x3/uL (130-400); Red Blood Cell (RBC) Count 3.03 mill/uL (4.70-6.10); White Blood Cell (WBC) Count 16.74 10x3/uL (4.8-10.8)
[2024-11-24 05:42] LABS: INR-International Normal Ratio 1.1; Prothrombin Time 14.6 sec (12.0-14.7)
[2024-11-24 05:50] LABS: Vancomycin, Random 30.2 ug/mL (See Comment)
[2024-11-24 05:57] LABS: Anion Gap 19 mmol/L (10-20); BUN (Urea Nitrogen) 59 mg/dL (8.4-25.7); Calc. Creatinine Clearance 45 mL/min (70-130); Calcium 8.4 mg/dL (7.8-10.44); Carbon Dioxide 21 mmol/L (23-31); Chloride 109 mmol/L (98-107); Glucose 111 mg/dL (83-110); Potassium 4.0 mmol/L (3.5-5.1); Sodium 145 mmol/L (136-145)
[2024-11-24] MEDS: Furosemide 40 MG (4 mL) VIAL SLOW IVP SCH (16:05)
[2024-11-24 17:15] LABS: HIV-1 Quantitative, RNA PCR 8190.0 copies/mL (.); LOG10 HIV-1 RNA 3.913 (.)
[2024-11-24] MEDS: Enoxaparin 100 MG (1 mL) SYRINGE SC SCH (20:26)
[2024-11-25 04:52] LABS: INR-International Normal Ratio 1.3; Prothrombin Time 16.2 sec (12.0-14.7)
[2024-11-25 05:05] LABS: Vancomycin, Random 27.2 ug/mL (See Comment)
[2024-11-25 14:13] LABS: %CD4 Pos. Lymph 33.2 % (30.8-58.5); Absolute CD4 730 /uL (359-1519); Lymphocytes/Gated Cell Count 2.2 x10E3/uL (0.7-3.1); Total Lymphocyte 13 % (Not Estab.); WBC Total Count 17.2 x10E3/uL (3.4-10.8); nRBC 2 % (0 - 0)
[2024-11-25 15:45] LABS: HBSAB Concentration 78.70 mIU/mL; Hep A IgM AB NONREACTIVE (NonReactive); Hep A IgM S/CO 0.30 S/CO (0-0.79); Hep B Surf Ag NONREACTIVE S/CO (NonReactive); Hep C IgG Ab NONREACTIVE S/CO (NonReactive); Hep C Index 0.19 S/CO (0-0.79)
[2024-11-25] MEDS: Clindamycin/D5W 900 MG in Premix 1 BAG IVPB SCH (15:50)
[2024-11-25] MEDS ORDERED: Communication Order-Pharmacy FS SCH (18:00)
[2024-11-25 19:22] LABS: Syphilis Antibody Index 0.39 S/CO (<1.00 Non-Reactive)
[2024-11-26 05:10] VITALS: BMI 31.5
[2024-11-26 05:23] LABS: Chlam.trachomatis by PCR,Urine *Indeterminate (NotDetected); GC N.gonorrhoeae PCR,UrineVOID *Indeterminate (NotDetected)
[2024-11-26 05:35] LABS: INR-International Normal Ratio 1.3; Prothrombin Time 15.8 sec (12.0-14.7)
[2024-11-26 05:36] LABS: ALT (SGPT) 32 U/L (Less than 45); AST (SGOT) 48 U/L (11-34); Albumin 2.1 g/dL (3.1-4.5); Alkaline Phosphatase 78 U/L (40-110); Anion Gap 13 mmol/L (10-20); BUN (Urea Nitrogen) 58 mg/dL (8.4-25.7); Bilirubin, Total 2.9 mg/dL (0.3-1.2); Calc. Creatinine Clearance 48 mL/min (70-130); Calcium 7.9 mg/dL (7.8-10.44); Carbon Dioxide 26 mmol/L (23-31); Chloride 110 mmol/L (98-107); Globulin 3.5 g/dL (2.4-3.5); Glucose 92 mg/dL (83-110); Magnesium 2.1 mg/dL (1.6-2.6); Potassium 2.8 mmol/L (3.5-5.1); Sodium 146 mmol/L (136-145)
[2024-11-26 05:44] LABS: #Basophils 0.04 10x3/uL (0.0-0.2); #Eosinophils 0.12 10x3/uL (0.0-0.7); #Monocytes 1.08 10x3/uL (0.11-0.59); #Neutrophils 8.77 10x3/uL (1.40-6.50); %Basophils 0.3 % (0.0-1.0); %Eosinophils 1.0 % (0.0-10.0); %Lymphocytes 10.9 % (21.0-51.0); %Monocytes 9.0 % (0.0-10.0); %Neutrophils 73.1 % (42.0-75.0); Hematocrit 24.5 % (42.0-52.0); Hemoglobin 7.8 g/dL (14.0-18.0); Mean Corpuscular Hemoglobin 29.3 pg (27.0-31.0); Mean Corpuscular Volume 92.1 fL (78.0-98.0); Platelet Count 181 10x3/uL (130-400); Red Blood Cell (RBC) Count 2.66 mill/uL (4.70-6.10); White Blood Cell (WBC) Count 12.00 10x3/uL (4.8-10.8)
[2024-11-26] MEDS ORDERED: Potassium Chloride 20 MEQ in Premix 1 BAG IVPB SCH (06:30)
[2024-11-26] MEDS: Potassium Chloride 40 MEQ in Premix 1 BAG IVPB SCH (06:39)
[2024-11-26] MEDS ORDERED: Adenosine 6 mg (2 mL) VIAL ONE (07:22)
[2024-11-26] MEDS ORDERED: Nitroglycerin 50 MG/250 ML BOT 0 ML ONE (07:23)
[2024-11-26] MEDS ORDERED: Lidocaine 1% (PF) 30 ML VIAL ONE (07:23)
[2024-11-26] MEDS ORDERED: Heparin 10,000 UNITS/ 10 ML VIAL ONE (07:23)
[2024-11-26] MEDS ORDERED: Iopamidol 370 76% 100 ML VIAL ONE (10:42)
[2024-11-26] MEDS ORDERED: diphenhydrAMINE 50 MG/ML VIAL ONE (13:10)
[2024-11-26] MEDS ORDERED: Famotidine/PF 20 mg/2ml Vial ONE (13:11)
[2024-11-26] MEDS ORDERED: Clindamycin/D5W 900 MG in Premix 1 BAG IVPB SCH (16:00)
[2024-11-26 18:22] LABS: Potassium 3.0 mmol/L (3.5-5.1)
[2024-11-26] MEDS: Potassium Chloride 20 MEQ in Premix 1 BAG IVPB SCH (19:42)
[2024-11-26] MEDS: Albumin 25% 25 GM (100 mL) BOT IVPB SCH (22:48)
[2024-11-27 04:33] LABS: Hematocrit 26.5 % (42.0-52.0); Hemoglobin 8.6 g/dL (14.0-18.0); Mean Corpuscular Hemoglobin 29.1 pg (27.0-31.0); Mean Corpuscular Volume 89.5 fL (78.0-98.0); Platelet Count 174 10x3/uL (130-400); Red Blood Cell (RBC) Count 2.96 mill/uL (4.70-6.10); White Blood Cell (WBC) Count 11.93 10x3/uL (4.8-10.8)
[2024-11-27 04:47] LABS: INR-International Normal Ratio 1.3; Prothrombin Time 16.0 sec (12.0-14.7)
[2024-11-27 04:54] LABS: ALT (SGPT) 26 U/L (Less than 45); AST (SGOT) 45 U/L (11-34); Albumin 2.4 g/dL (3.1-4.5); Alkaline Phosphatase 76 U/L (40-110); Anion Gap 11 mmol/L (10-20); BUN (Urea Nitrogen) 52 mg/dL (8.4-25.7); Bilirubin, Total 3.1 mg/dL (0.3-1.2); Calc. Creatinine Clearance 50 mL/min (70-130); Calcium 7.6 mg/dL (7.8-10.44); Carbon Dioxide 26 mmol/L (23-31); Chloride 115 mmol/L (98-107); Globulin 3.5 g/dL (2.4-3.5); Glucose 97 mg/dL (83-110); Magnesium 2.1 mg/dL (1.6-2.6); Potassium 3.4 mmol/L (3.5-5.1); Sodium 149 mmol/L (136-145)
[2024-11-27 04:56] LABS: Anisocytosis SLIGHT = 6-15 cells HPF (0-5); Nucleated RBC (Manual Ct) 1 % (0); Platelet Adequacy Comment Platelets Normal; Polychromasia SLIGHT = 2-3 cells HPF (0-2)
[2024-11-27 05:52] LABS: Chlam.trachomatis by PCR,Urine *Indeterminate (NotDetected); GC N.gonorrhoeae PCR,UrineVOID *Indeterminate (NotDetected)
[2024-11-27] MEDS: Potassium Bicarbonate/Cit Ac 20 MEQ TAB PER TUBE SCH (09:29)
[2024-11-27 14:35] LABS: Potassium 3.6 mmol/L (3.5-5.1)
[2024-11-27] MEDS: Amiodarone 200 MG TAB PO SCH ×2 (15:21→20:02)
[2024-11-28 05:00] LABS: ALT (SGPT) 25 U/L (Less than 45); AST (SGOT) 49 U/L (11-34); Albumin 2.3 g/dL (3.1-4.5); Alkaline Phosphatase 79 U/L (40-110); Anion Gap 9 mmol/L (10-20); BUN (Urea Nitrogen) 47 mg/dL (8.4-25.7); Bilirubin, Total 2.4 mg/dL (0.3-1.2); Calc. Creatinine Clearance 47 mL/min (70-130); Calcium 7.6 mg/dL (7.8-10.44); Carbon Dioxide 27 mmol/L (23-31); Chloride 110 mmol/L (98-107); Globulin 3.7 g/dL (2.4-3.5); Glucose 121 mg/dL (83-110); Magnesium 2.0 mg/dL (1.6-2.6); Potassium 3.3 mmol/L (3.5-5.1); Sodium 143 mmol/L (136-145)
[2024-11-28 05:16] LABS: INR-International Normal Ratio 1.3; Prothrombin Time 16.0 sec (12.0-14.7)
[2024-11-28 05:48] LABS: Hematocrit 28.3 % (42.0-52.0); Hemoglobin 8.7 g/dL (14.0-18.0); Mean Corpuscular Hemoglobin 28.2 pg (27.0-31.0); Mean Corpuscular Volume 91.9 fL (78.0-98.0); Platelet Count 204 10x3/uL (130-400); Red Blood Cell (RBC) Count 3.08 mill/uL (4.70-6.10); White Blood Cell (WBC) Count 13.93 10x3/uL (4.8-10.8)
[2024-11-28 06:57] LABS: Nucleated RBC (Manual Ct) 1 % (0); Platelet Adequacy Comment Platelets Normal; Smudge Cells 8.9 %
[2024-11-28] MEDS: Magnesium 2 GM/50 ML(in water) 2 GM in Premix 1 BAG IVPB SCH (10:01)
[2024-11-28] MEDS: Potassium Chloride 40 MEQ in Premix 1 BAG IVPB SCH (10:01)
[2024-11-28 14:09] LABS: Potassium 3.8 mmol/L (3.5-5.1)
[2024-11-29 04:29] LABS: Hematocrit 25.6 % (42.0-52.0); Hemoglobin 8.2 g/dL (14.0-18.0); Mean Corpuscular Hemoglobin 29.0 pg (27.0-31.0); Mean Corpuscular Volume 90.5 fL (78.0-98.0); Platelet Count 215 10x3/uL (130-400); Red Blood Cell (RBC) Count 2.83 mill/uL (4.70-6.10); White Blood Cell (WBC) Count 15.79 10x3/uL (4.8-10.8)
[2024-11-29 04:37] LABS: Vancomycin, Random 22.6 ug/mL (See Comment)
[2024-11-29 04:39] LABS: INR-International Normal Ratio 1.3; Prothrombin Time 16.1 sec (12.0-14.7)
[2024-11-29 04:40] LABS: ALT (SGPT) 25 U/L (Less than 45); AST (SGOT) 60 U/L (11-34); Albumin 2.1 g/dL (3.1-4.5); Alkaline Phosphatase 77 U/L (40-110); Anion Gap 14 mmol/L (10-20); BUN (Urea Nitrogen) 47 mg/dL (8.4-25.7); Bilirubin, Total 2.2 mg/dL (0.3-1.2); Calc. Creatinine Clearance 40 mL/min (70-130); Calcium 7.5 mg/dL (7.8-10.44); Carbon Dioxide 20 mmol/L (23-31); Chloride 108 mmol/L (98-107); Globulin 3.7 g/dL (2.4-3.5); Glucose 100 mg/dL (83-110); Magnesium 2.4 mg/dL (1.6-2.6); Potassium 3.8 mmol/L (3.5-5.1); Sodium 138 mmol/L (136-145)
[2024-11-29 05:03] LABS: Anisocytosis SLIGHT = 6-15 cells HPF (0-5); Platelet Adequacy Comment Platelets Normal; Polychromasia SLIGHT = 2-3 cells HPF (0-2)
[2024-11-29] MEDS ORDERED: PROPOFOL 200 MG/20 ML VIAL ONE (05:49)
[2024-11-29] MEDS: Albumin 25% 25 GM (100 mL) BOT IVPB SCH (10:21)
[2024-11-29] MEDS ORDERED: Ketamine In 0.9 % NaCl 50 MG/5 ML SYRINGE ONE (12:41)
[2024-11-29] MEDS ORDERED: Etomidate 40 MG (20 mL) VIAL ONE (12:41)
[2024-11-29] MEDS ORDERED: Rocuronium Bromide 10 MG/ML (10ML VIAL) ONE (12:42)
[2024-11-29] MEDS ORDERED: Albuterol HFA (OR) 200 PUFF INH ONE (13:10)
[2024-11-29] MEDS ORDERED: Ondansetron PF 4 MG/2 ML Vial ONE (13:25)
[2024-11-29] MEDS ORDERED: PHENYLEPHRINE-NS 100 MCG/ML 10 ML SYRINGE ONE (13:55)
[2024-11-29] MEDS ORDERED: Norepinephrine 8 MG/0.9% NS 250 ML IVPB SCH (16:00)
[2024-11-29] MEDS: Norepinephrine 8 MG/0.9% NS 250 ML ONE (16:54)
[2024-11-30 05:55] LABS: INR-International Normal Ratio 1.3; Prothrombin Time 16.6 sec (12.0-14.7)
[2024-11-30 06:00] LABS: Vancomycin, Random 22.5 ug/mL (See Comment)
[2024-11-30 06:02] LABS: Hematocrit 23.2 % (42.0-52.0); Hemoglobin 7.3 g/dL (14.0-18.0); Mean Corpuscular Hemoglobin 28.4 pg (27.0-31.0); Mean Corpuscular Volume 90.3 fL (78.0-98.0); Platelet Count 274 10x3/uL (130-400); Red Blood Cell (RBC) Count 2.57 mill/uL (4.70-6.10); White Blood Cell (WBC) Count 21.79 10x3/uL (4.8-10.8)
[2024-11-30 06:03] LABS: ALT (SGPT) 24 U/L (Less than 45); AST (SGOT) 54 U/L (11-34); Albumin 2.2 g/dL (3.1-4.5); Alkaline Phosphatase 76 U/L (40-110); Anion Gap 11 mmol/L (10-20); BUN (Urea Nitrogen) 57 mg/dL (8.4-25.7); Bilirubin, Total 2.1 mg/dL (0.3-1.2); Calc. Creatinine Clearance 36 mL/min (70-130); Calcium 7.7 mg/dL (7.8-10.44); Carbon Dioxide 21 mmol/L (23-31); Chloride 106 mmol/L (98-107); Globulin 3.6 g/dL (2.4-3.5); Glucose 122 mg/dL (83-110); Magnesium 2.4 mg/dL (1.6-2.6); Potassium 4.0 mmol/L (3.5-5.1); Sodium 134 mmol/L (136-145)
[2024-11-30 06:17] VITALS: BP 104/45
[2024-11-30 06:51] LABS: Platelet Adequacy Comment Platelets Normal; RBC Morphology Within Normal Limits; Smudge Cells 7.9 %
[2024-11-30] MEDS: Albumin 25% 25 GM (100 mL) BOT IVPB SCH (12:10)
[2024-11-30 15:27] VITALS: TEMP 97.8
[2024-11-30 16:44] VITALS: BMI 34.1
== END 2024-11-30 19:06 | disposition expired | DRG 480 ==
LOC: ERS 10:54 → ERHOLD 13:35 → IMCU/EMU 19:56 → CCU 11-21 08:38
PROVIDERS: ADMIT Internal Medicine; ATTEND Internal Medicine
PROC: 5A09357 Assistance with Respiratory Ventilation, Less than 24 Consecutive Hours, Continuous Positive Airway Pressure (ICD-10-PCS; 2024-11-18)
PROC: 3E03329 Introduction of Other Anti-infective into Peripheral Vein, Percutaneous Approach (ICD-10-PCS; 2024-11-18)
PROC: 0T9B70Z Drainage of Bladder with Drainage Device, Via Natural or Artificial Opening (ICD-10-PCS; 2024-11-18)
PROC: 4A133R1 Monitoring of Arterial Saturation, Peripheral, Percutaneous Approach (ICD-10-PCS; 2024-11-18)
PROC: 3E02340 Introduction of Influenza Vaccine into Muscle, Percutaneous Approach (ICD-10-PCS; 2024-11-19)
PROC: 06HY33Z Insertion of Infusion Device into Lower Vein, Percutaneous Approach (ICD-10-PCS; principal; 2024-11-21)
PROC: 0BH17EZ Insertion of Endotracheal Airway into Trachea, Via Natural or Artificial Opening (ICD-10-PCS; 2024-11-21)
PROC: 4A133B1 Monitoring of Arterial Pressure, Peripheral, Percutaneous Approach (ICD-10-PCS; 2024-11-21)
PROC: 4A133J1 Monitoring of Arterial Pulse, Peripheral, Percutaneous Approach (ICD-10-PCS; 2024-11-21)
PROC: 5A1955Z Respiratory Ventilation, Greater than 96 Consecutive Hours (ICD-10-PCS; 2024-11-21)
PROC: 3E033XZ Introduction of Vasopressor into Peripheral Vein, Percutaneous Approach (ICD-10-PCS; 2024-11-21)
PROC: 03HY32Z Insertion of Monitoring Device into Upper Artery, Percutaneous Approach (ICD-10-PCS; 2024-11-21)
PROC: 05HY33Z Insertion of Infusion Device into Upper Vein, Percutaneous Approach (ICD-10-PCS; 2024-11-21)
PROC: 5A12012 Performance of Cardiac Output, Single, Manual (ICD-10-PCS; 2024-11-21)
PROC: 0D9670Z Drainage of Stomach with Drainage Device, Via Natural or Artificial Opening (ICD-10-PCS; 2024-11-22)
PROC: 30233J1 Transfusion of Nonautologous Serum Albumin into Peripheral Vein, Percutaneous Approach (ICD-10-PCS; 2024-11-26)
PROC: 30233N1 Transfusion of Nonautologous Red Blood Cells into Peripheral Vein, Percutaneous Approach (ICD-10-PCS; 2024-11-26)
PROC: 027034Z Dilation of Coronary Artery, One Artery with Drug-eluting Intraluminal Device, Percutaneous Approach (ICD-10-PCS; 2024-11-26)
PROC: B2111ZZ Fluoroscopy of Multiple Coronary Arteries using Low Osmolar Contrast (ICD-10-PCS; 2024-11-26)
PROC: B2151ZZ Fluoroscopy of Left Heart using Low Osmolar Contrast (ICD-10-PCS; 2024-11-26)
PROC: 02HP32Z Insertion of Monitoring Device into Pulmonary Trunk, Percutaneous Approach (ICD-10-PCS; 2024-11-26)
PROC: 4A133B3 Monitoring of Arterial Pressure, Pulmonary, Percutaneous Approach (ICD-10-PCS; 2024-11-26)
PROC: 0QS736Z Reposition Left Upper Femur with Intramedullary Internal Fixation Device, Percutaneous Approach (ICD-10-PCS; 2024-11-29)
DX: S72.142A Displaced intertrochanteric fracture of left femur, initial encounter for closed fracture (principal); A41.9 Sepsis, unspecified organism; I21.4 Non-ST elevation (NSTEMI) myocardial infarction; J96.01 Acute respiratory failure with hypoxia; J69.0 Pneumonitis due to inhalation of food and vomit; I50.43 Acute on chronic combined systolic (congestive) and diastolic (congestive) heart failure; R65.21 Severe sepsis with septic shock; L03.116 Cellulitis of left lower limb; L03.115 Cellulitis of right lower limb; N17.9 Acute kidney failure, unspecified; E87.3 Alkalosis; I13.0 Hypertensive heart and chronic kidney disease with heart failure and stage 1 through stage 4 chronic kidney disease, or unspecified chronic kidney disease; N18.4 Chronic kidney disease, stage 4 (severe); T82.855A Stenosis of coronary artery stent, initial encounter; C85.9A Non-Hodgkin lymphoma, unspecified, in remission; E87.21 Acute metabolic acidosis; E87.0 Hyperosmolality and hypernatremia; T85.628A Displacement of other specified internal prosthetic devices, implants and grafts, initial encounter; Z51.5 Encounter for palliative care; Z66 Do not resuscitate; Z23 Encounter for immunization; I45.10 Unspecified right bundle-branch block; Z88.5 Allergy status to narcotic agent; Z88.0 Allergy status to penicillin; Z91.013 Allergy to seafood; I48.0 Paroxysmal atrial fibrillation; I25.10 Atherosclerotic heart disease of native coronary artery without angina pectoris; Z95.5 Presence of coronary angioplasty implant and graft; Z95.1 Presence of aortocoronary bypass graft; E78.5 Hyperlipidemia, unspecified; Z90.49 Acquired absence of other specified parts of digestive tract; Z98.890 Other specified postprocedural states; Z79.01 Long term (current) use of anticoagulants; Z21 Asymptomatic human immunodeficiency virus [HIV] infection status; I25.5 Ischemic cardiomyopathy; Z96.652 Presence of left artificial knee joint; Z60.2 Problems related to living alone; Z79.82 Long term (current) use of aspirin; Z79.899 Other long term (current) drug therapy; E87.6 Hypokalemia; D63.1 Anemia in chronic kidney disease; I27.20 Pulmonary hypertension, unspecified; I35.0 Nonrheumatic aortic (valve) stenosis; I73.9 Peripheral vascular disease, unspecified; D69.59 Other secondary thrombocytopenia; Y83.1 Surgical operation with implant of artificial internal device as the cause of abnormal reaction of the patient, or of later complication, without mention of misadventure at the time of the procedure; I46.8 Cardiac arrest due to other underlying condition; R57.0 Cardiogenic shock; W19.XXXA Unspecified fall, initial encounter; Y92.009 Unspecified place in unspecified non-institutional (private) residence as the place of occurrence of the external cause; L89.612 Pressure ulcer of right heel, stage 2
CPT/HCPCS: 36415; 36416; 36430; 51702; 70450; 71045; 71250; 72170; 74018; 74177; 80048; 80053; 80202; 80306; 80307; 81001; 82550; 82728; 82805; 83540; 83550; 83605; 83690; 83735; 83880; 84100; 84145; 84443; 84484; 85025; 85027; 85347; 85610; 86141; 86361; 86480; 86706; 86709; 86777; 86778; 86780; 86803; 86850; 86900; 86901; 87040; 87070; 87077; 87081; 87086; 87205; 87340; 87389; 87428; 87491; 87535; 87536; 87538; 87591; 88112; 88305; 90653; 92928; 93005; 93010; 93306; 93461; 94002; 94003; 94660; 96374; 96375; 97139; 99152; 99153; C1713; C1769; C1874; C1887; C1894; C9600; J0153; J0165; J0282; J0692; J1100; J1200; J1308; J1644; J1650; J1940; J2003; J2060; J2250; J2270; J2405; J2470; J2704; J2919; J3010; J3373; J3375; J3475; J3480; J3490; J7030; J7050; J7070; J7120; P9016; P9045; P9047; Q9957; Q9967